=== PATIENT | female | born 1940 | race Caucasian/White ===

== ENCOUNTER → 2018-05-17 11:55 | Outpatient (CLI) | payer MEDICARE, SELFPAY ==
--- NOTE | 2018-05-17 12:02 | RAD_ITS ---
STUDY: X-RAY - RIGHT KNEE REASON FOR EXAM: Pain, arthritis. TECHNIQUE: 4 view(s) of the knee. COMPARISON: None. FINDINGS: Normal visualized distal femur. Normal visualized proximal tibia and fibula. Normal proximal tibiofibular articulation. There are small marginal osteophytes without joint space narrowing of the medial femorotibial compartment. There are marginal osteophytes and joint space narrowing of the lateral femorotibial compartment. There are marginal osteophytes and joint space narrowing of the patellofemoral articulation. There are small patellar enthesophytes. RAD/Knee 4 or More Views IMPRESSION: Arthrosis of the lateral femorotibial and patellofemoral compartments. Electronically Signed: Vladimir Guerin MD at 12:47 EDT Tel , Service support ,
[2018-05-17 14:16] LABS: Absolute Lymphocyte Count 1.23 X10^3/ul (0.83-4.51); Absolute Neutrophil Count 5.1 X10^3/uL (2.0-7.7); Basophil# 0.02 X10^3/uL; Basophil% 0.3 % (0-1); Eosinophil# 0.07 X10^3/uL; Hematocrit 40.8 % (37-47); Hemoglobin 13.3 g/dl (12.0-15.0); Lymphocyte # 1.23 X10^3/ul (4.0); Lymphocyte % 18.3 % (19-41); Mean Corp Hgb Conc 32.6 g/gl (32-36); Mean Corpuscular Hgb 29.4 pg (27.0-32.0); Mean Corpuscular Volume 90.3 fL (81-99); Mean Platelet Vol. 10.7 fl (6.2-12.0); Monocyte% 4.5 % (0-10); Neutrophil # 5.08 X10^3/uL (2.7-7.7); Neutrophil % 75.8 % (47-70); Platelet Count 271 K/mm3 (150-450); RBC Distribution Width CV 13.1 % (11.6-14.6); RBC Distribution Width SD 42.5 fl (35.1-43.9); Red Blood Count 4.52 M/mm3 (4.2-5.4); White Blood Count 6.7 K/mm3 (4.4-11.0)
[2018-05-17 14:18] LABS: AST(SGOT) 14 U/L (15-37); Alanine Aminotransfer ALT/SGPT 22 U/L (13-56); Albumin, Serum 3.8 g/dL (3.2-5.0); Alkaline Phosphatase 73 U/L (45-117); Anion Gap 7 (5-15); BUN 12 mg/dL (7-18); BUN/Creat Ratio 19.4 RATIO (10-20); Chloride 106 mmol/L (98-107); Creatinine, Serum 0.62 mg/dL (0.55-1.02); EST Glomerular Filtration Rate 100 mL/min (>60); Est Glom Filt Rate - Afr Amer 121 mL/min (>60); Glucose 96 mg/dL (74-106); Potassium 4.3 mmol/L (3.5-5.1); Protein, Total 7.8 g/dL (6.4-8.2); Sodium Level 142 mmol/L (136-145)
[2018-05-17 14:19] LABS: POSITIVE COUNT NO; POSITIVE DIFFERENTIAL NO; POSITIVE MORPHOLOGY NO
[2018-05-22 15:21] LABS: CCP IgG Antibodies 8 units (0-19); HEPATITIS B SURFACE AG Negative (Negative); HLA B27 Negative (.); Hep B Surface Antibodies Non Reactive (.); Hep C Antibodies 0.1 s/co ratio (0.0-0.9)
== END ==
PROVIDERS: Family Provider Family Medicine; PCP Family Medicine; Visit Provider Internal Medicine Rheumatology
DX: M06.4 Inflammatory polyarthropathy (principal); M17.0 Bilateral primary osteoarthritis of knee; M21.40 Flat foot [pes planus] (acquired), unspecified foot; K21.9 Gastro-esophageal reflux disease without esophagitis
CPT/HCPCS: 36415; 73564; 80053; 81374; 85025; 86200; 86431; 86706; 86803; 87340

== ENCOUNTER 2018-11-13 09:01 | Day surgery (SDC) | payer MEDICARE, SELFPAY ==
[2018-11-13 09:17] VITALS: BP 138/71; PULSE 63; RESP 16; TEMP 37; O2SAT 97; BMI 28.0
--- NOTE | 2018-11-13 10:30 | RAD_ITS ---
STUDY: X-RAY - LUMBAR SPINE REASON FOR EXAM: Female, 78 years old. Block lumbar facet L3 S1 TECHNIQUE: 4 view(s) of the lumbar spine were obtained. COMPARISON: None FINDINGS: 4 images were submitted, as radiology support for c-arm imaging in the operating room. This is not a diagnostic examination. Images for documentation purposes only. Fluoroscopy time if reported: RAD/L/S Spine Min 4 Views IMPRESSION: Intraoperative fluoroscopic image guidance. Electronically Signed: Anitha Garcia MD at 4:19 EST , Service support ,
[2018-11-13] MEDS: MethylPREDNISolone Acetate 80 MG/ML Vial (10:50)
[2018-11-13] MEDS: Bupivacaine 0.25% 30 ML Vial (10:50)
[2018-11-13 11:07] VITALS: BP 141/66; PULSE 65; RESP 16; TEMP 36.9; O2SAT 98
--- NOTE | 2018-11-13 11:45 | OP.PCM_ITS ---
Problem List (1) Spondylosis of lumbosacral region without myelopathy or radiculopathy Status: Chronic (2) Degeneration of intervertebral disc of lumbosacral region Status: Chronic Report of Operation Date of Procedure: 11/13/18 Pre-Operative Diagnosis: Lumbosacral spondylosis, lumbosacral degenerative disc disease, lumbar facet arthropathy Post-Operative Diagnosis: Lumbosacral spondylosis, lumbosacral degenerative disc disease, lumbar facet arthropathy Surgery/Procedure Performed:: Left-sided lumbar facet steroid injection L3, L4, L5, S1 Description of Surgical Findings:: PROCEDURE: Left-sided lumbar facet steroid injection L3, L4, L5, S1 PREOPERATIVE DIAGNOSIS: Lumbosacral spondylosis, lumbosacral degenerative disc disease, and lumbar facet arthropathy POSTOPERATIVE DIAGNOSIS: Lumbar sacral spondylosis, lumbosacral degenerative disc disease, and lumbar facet arthropathy ANESTHESIA: Local COMPLICATIONS: None BLOOD LOSS: Minimal PROCEDURE IN DETAIL: History and physical today was reviewed. Risks and benefits of the procedure were explained. The patient understood, agreed to our procedure, and informed consent was obtained. IV inserted per routine protocol. The patient was taken to the operating room, placed in a prone position with a pillow positioned underneath the abdomen. The left side of the lower back was prepped and draped in a sterile fashion using iodine x3. Under fluoroscopy guidance, on AP view, L3 through S1 vertebral bodies were visualized. Skin and subcutaneous tissues were anesthetized with approximately 5 mL of 1% lidocaine using a 25-gauge regular needle. Under direct visualization with fluoroscopy at approximately 25-degree angle, starting on the left L3, ending on the left S1, passing through the L4-L5 using a 22-gauge 3 1/2-inch spinal needle, the needle was advanced via the skin. The tip of the needle was maneuvered and directed towards the superior and medial gutter of the transverse process at the vicinity of the medial branch. Once the tip of the needle was in contact with the bone, the needle pulled approximately 2 mm off the bone. After negative aspiration of blood with CSF and confirmation of AP as well as oblique view, a total of 8 mL of preservative-free 0.25% Marcaine with 80 mg of Depo- Medrol was injection in divided doses between those 4 levels. The needles were then removed intact. The patient experienced no signs or symptoms intrathecal, intravascular injection. The patient experienced no paraesthesia. The procedure was completed without any apparent difficult, any complication. The patient appeared to tolerate well. ASSESSMENT AND PLAN: This is a 78-year-old female with lumbosacral spondylosis, lumbosacral degenerative disc disease, and lumbar facet arthropathy, status post left-sided lumbar facet steroid injection L3 through S1. The patient will continue her current medications. The patient will follow in approximately 2 weeks for reevaluation.
== END 2018-11-13 11:11 | disposition home or self-care (01) ==
LOC: SDC 09:02 → AC 09:05
PROVIDERS: Family Provider Family Medicine; PCP Family Medicine; Referring Provider Anesthesiology Pain Medicine; Visit Provider Anesthesiology Pain Medicine
PROC: 3E0T3BZ Introduction of Anesthetic Agent into Peripheral Nerves and Plexi, Percutaneous Approach (ICD-10-PCS; principal; 2018-11-13 10:25)
DX: M47.27 Other spondylosis with radiculopathy, lumbosacral region (principal); M51.17 Intervertebral disc disorders with radiculopathy, lumbosacral region; M48.07 Spinal stenosis, lumbosacral region; M19.90 Unspecified osteoarthritis, unspecified site; F41.9 Anxiety disorder, unspecified; K21.9 Gastro-esophageal reflux disease without esophagitis; Z79.891 Long term (current) use of opiate analgesic; Z79.899 Other long term (current) drug therapy
CPT/HCPCS: 64520; 64483; 72110

== ENCOUNTER 2019-01-08 08:35 | Day surgery (SDC) | payer MEDICARE, SELFPAY ==
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
[2019-01-08 09:10] VITALS: BP 146/75; PULSE 72; RESP 16; TEMP 36.7; O2SAT 98; BMI 27.6
--- NOTE | 2019-01-08 10:20 | RAD_ITS ---
PROCEDURE: Caudal block. DATE OF EXAMINATION: January 08, 2019. INDICATION: Female, 78 years old. Chronic low back pain. FLUOROSCOPY TIME (if supplied): (0:10) minutes/seconds. 2 cone down intraoperative views were obtained. Imaging provided for caudal block. The spinal needle is seen overlying the midportion of the sacrum. RAD/Fluor Guidance for Spine Inj IMPRESSION: Intraoperative imaging provided for caudal block. Electronically Signed: Ganesh Medina, at 9:05 EDT , Service support ,
[2019-01-08 10:25] VITALS: BP 124/68; BP 146/75; PULSE 70; RESP 16; TEMP 36.4; O2SAT 100
[2019-01-08 10:30] VITALS: BP 131/70; BP 146/75; PULSE 70; RESP 16; O2SAT 97
[2019-01-08 10:35] VITALS: BP 137/76; BP 146/75; PULSE 70; RESP 16; O2SAT 99
--- NOTE | 2019-01-08 10:38 | PCM.OPRPT ---
Problem List (1) Radiculopathy of lumbosacral region Status: Chronic (2) Spinal stenosis of lumbosacral region Status: Chronic (3) Degeneration of intervertebral disc of lumbosacral region Status: Chronic Report of Operation Date of Procedure: 01/08/19 Pre-Operative Diagnosis: Lumbosacral radiculopathy, lumbosacral degenerative disc disease, lumbosacral spinal stenosis Post-Operative Diagnosis: Lumbosacral radiculopathy, lumbosacral degenerative disc disease, lumbosacral spinal stenosis Surgery/Procedure Performed:: Diagnostic/therapeutic caudal epidural steroid injection Description of Surgical Findings:: PROCEDURE: Diagnostic/therapeutic caudal epidural steroid injection PREOPERATIVE DIAGNOSIS: Lumbosacral radiculopathy, lumbosacral degenerative disc disease, lumbosacral spinal stenosis POSTOPERATIVE DIAGNOSIS: Lumbosacral radiculopathy, lumbosacral degenerative disc disease, lumbosacral spinal stenosis ANESTHESIA: MAC COMPLICATIONS: None BLOOD LOSS: Minimal PROCEDURE IN DETAIL: History and physical today was reviewed. Risks and benefits of the procedure were explained. The patient understood, agreed to our procedure, and informed consent was obtained. IV inserted per routine protocol. The patient was taken to the operating room, placed in a prone position with a pillow positioned underneath the abdomen. The lower back area was prepped and draped in a sterile fashion using iodine x3 under fluoroscopy guidance on the lateral view the caudal space was identified the skin and subcutaneous tissue and size approximately 3 cc of 1% lidocaine using a 25-gauge regular needle under direct visualization fluoroscopy using a 22-gauge 3-1/2 inch spinal needle the needle was advanced via the skin through the sacral hiatus tip of the needle passed through the sacrococcygeal ligament advanced approximately S4 area after negative aspiration for blood or CSF a total of 3 cc of contrast were injected to confirm correct placement of the needle as well as cephalad spread the spread was followed to approximately L5 area after negative aspiration for blood or CSF and confirmation AP as well as lateral view a total of 15 cc of preservative-free 0.125% Marcaine with 80 mg of Depo-Medrol were injected easily. The needles were then removed intact. The patient experienced no signs or symptoms intrathecal, intravascular injection. The patient experienced no paraesthesia. The procedure was completed without any apparent difficult, any complication. The patient appeared to tolerate well. ASSESSMENT AND PLAN: This is a 78-year-old female with lumbosacral radiculopathy, lumbosacral degenerative disc disease, lumbosacral spinal stenosis status post diagnostic/therapeutic caudal epidural steroid injection. The patient will continue her current medications. The patient will follow in approximately 2 weeks for possible repeat of the procedure if indicated.
[2019-01-08 10:40] VITALS: BP 136/73; BP 146/75; PULSE 68; RESP 14; TEMP 36.2; O2SAT 99
[2019-01-08 10:47] VITALS: BP 146/75
== END 2019-01-08 11:03 | disposition home or self-care (01) ==
LOC: SDC 08:36 → AC 08:41
PROVIDERS: Referring Provider Anesthesiology Pain Medicine; Visit Provider Anesthesiology Pain Medicine
PROC: 3E0S3BZ Introduction of Anesthetic Agent into Epidural Space, Percutaneous Approach (ICD-10-PCS; CPT 62282; principal; 2019-01-08 09:55)
DX: M47.27 Other spondylosis with radiculopathy, lumbosacral region (principal); M51.17 Intervertebral disc disorders with radiculopathy, lumbosacral region; M48.07 Spinal stenosis, lumbosacral region; M43.16 Spondylolisthesis, lumbar region; Z79.891 Long term (current) use of opiate analgesic; M19.90 Unspecified osteoarthritis, unspecified site; K21.9 Gastro-esophageal reflux disease without esophagitis; F41.9 Anxiety disorder, unspecified; Z79.899 Other long term (current) drug therapy
CPT/HCPCS: 01992; 62323; 64520; 64483; 77003; J7120

== ENCOUNTER → 2019-01-29 | Outpatient (CLI) | payer MEDICARE, SELFPAY ==
[2019-01-08 09:10] VITALS: BMI 27.6
--- NOTE | 2019-01-29 14:45 | RAD_ITS ---
STUDY: X-RAY - RIGHT KNEE REASON FOR EXAM: Right knee pain for 6 months, no specific injury. TECHNIQUE: 5 view(s) of the knee. COMPARISON: Radiographs 05/17/2018. FINDINGS: Normal visualized distal femur. Normal visualized proximal tibia and fibula. Normal proximal tibiofibular articulation. Normal medial femorotibial compartment. There are small marginal osteophytes and moderate joint space narrowing of the lateral femorotibial compartment. There are small marginal osteophytes and [id number] joint space narrowing of the patellofemoral articulation. There is patellar enthesopathy. RAD/Knee 4 or More Views IMPRESSION: Arthrosis of the lateral femorotibial and patellofemoral compartments. Electronically Signed: Vladimir Guerin MD at 15:34 EDT Tel , Service support ,
== END | disposition home or self-care (01) ==
LOC: RAD 14:32
PROVIDERS: Referring Provider Anesthesiology Pain Medicine; Visit Provider Anesthesiology Pain Medicine
DX: M25.561 Pain in right knee (principal)
CPT/HCPCS: 73564

== ENCOUNTER 2019-02-26 09:07 | Day surgery (SDC) | payer MEDICARE, SELFPAY ==
[2019-02-26 10:08] VITALS: BP 147/67; PULSE 76; RESP 18; TEMP 37.2; O2SAT 99; BMI 27.4
--- NOTE | 2019-02-26 10:30 | RAD_ITS ---
PROCEDURE: Left L3 S1 facet joint block. DATE OF EXAMINATION: February 26, 2019. INDICATION: Female, 78 years old. Chronic low back pain. FLUOROSCOPY TIME (if supplied): (0:14) minutes/seconds. 3 cone down views were obtained. Intraoperative imaging provided for left L3 S1 facet block. RAD/L/S Spine Min 4 Views IMPRESSION: Intraoperative imaging provided for left L3 S1 facet block. Electronically Signed: Ganesh Medina, at 15:23 EDT , Service support ,
[2019-02-26] MEDS: MethylPREDNISolone Acetate 80 MG/ML Vial (10:59)
[2019-02-26] MEDS: Bupivacaine 0.25% 30 ML Vial (10:59)
[2019-02-26 11:10] VITALS: BP 134/73; BP 147/67; PULSE 73; RESP 18; TEMP 36.3; O2SAT 96
[2019-02-26 11:14] VITALS: BP 137/68; BP 147/67; PULSE 71; RESP 16; TEMP 36.3; O2SAT 95
[2019-02-26 11:28] VITALS: BP 147/67
--- NOTE | 2019-02-26 13:50 | OP.PCM_ITS ---
Problem List (1) Degeneration of intervertebral disc of lumbosacral region Status: Chronic (2) Spondylosis of lumbosacral region without myelopathy or radiculopathy Status: Chronic Report of Operation Date of Procedure: 02/26/19 Pre-Operative Diagnosis: Lumbosacral spondylosis, lumbosacral degenerative disc disease, lumbar facet arthropathy Post-Operative Diagnosis: Lumbosacral spondylosis, lumbosacral degenerative disc disease, lumbar facet arthropathy Surgery/Procedure Performed:: Left-sided lumbar facet steroid injection L3, L4, L5, S1 Description of Surgical Findings:: Left-sided lumbar facet steroid injection L3, L4, L5, S1 PREOPERATIVE DIAGNOSIS: Lumbosacral spondylosis, lumbosacral degenerative disc disease, and lumbar facet arthropathy POSTOPERATIVE DIAGNOSIS: Lumbosacral spondylosis, lumbosacral degenerative disc disease, and lumbar facet arthropathy ANESTHESIA: MAC COMPLICATIONS: None BLOOD LOSS: Minimal PROCEDURE IN DETAIL: History and physical today was reviewed. Risks and benefits of the procedure were explained. The patient understood, agreed to our procedure, and informed consent was obtained. IV inserted per routine protocol. The patient was taken to the operating room, placed in a prone position with a pillow positioned underneath the abdomen. The left side of the lower back was prepped and draped in a sterile fashion using iodine x3. Under fluoroscopy guidance, on AP view, L3 through S1 vertebral bodies were visualized. Skin and subcutaneous tissues were anesthetized with approximately 5 mL of 1% lidocaine using a 25-gauge regular needle. Under direct visualization with fluoroscopy at approximately 25-degree angle, starting on the left L3, ending on the left S1, passing through the L4-L5 using a 22-gauge 5 inch spinal needle, the needle was advanced via the skin. The tip of the needle was maneuvered and directed towards the superior and medial gutter of the transverse process at the vicinity of the medial branch. Once the tip of the needle was in contact with the bone, the needle pulled approximately 2 mm off the bone. After negative aspiration of blood with CSF and confirmation of AP as well as oblique view, a total of 8 mL of preservative-free 0.25% Marcaine with 80 mg of Depo- Medrol was injection in divided doses between those 4 levels. The needles were then removed intact. The patient experienced no signs or symptoms intrathecal, intravascular injection. The patient experienced no paraesthesia. The procedure was completed without any apparent difficult, any complication. The patient appeared to tolerate well. ASSESSMENT AND PLAN: This is a 78-year-old Female with Lumbosacral spondylosis, lumbosacral degenerative disc disease, and lumbar facet arthropathy, status post left-sided lumbar facet steroid injection L3 through S1. The patient will continue her current medications. The patient will follow in approximately 2 weeks for reevaluation.
== END 2019-02-26 11:34 | disposition home or self-care (01) ==
LOC: SDC 09:11 → AC 09:46
PROVIDERS: Referring Provider Anesthesiology Pain Medicine; Visit Provider Anesthesiology Pain Medicine
PROC: 3E0T3BZ Introduction of Anesthetic Agent into Peripheral Nerves and Plexi, Percutaneous Approach (ICD-10-PCS; CPT 64493; principal; 2019-02-26 10:25)
DX: M51.17 Intervertebral disc disorders with radiculopathy, lumbosacral region (principal); M48.07 Spinal stenosis, lumbosacral region; M47.27 Other spondylosis with radiculopathy, lumbosacral region; M43.16 Spondylolisthesis, lumbar region; M17.11 Unilateral primary osteoarthritis, right knee; K21.9 Gastro-esophageal reflux disease without esophagitis; Z79.891 Long term (current) use of opiate analgesic
CPT/HCPCS: 64493; 64494; 64495; 64483; 72110; J7120

== ENCOUNTER 2019-03-26 09:10 | Day surgery (SDC) | payer MEDICARE, SELFPAY ==
[2019-03-26] VITALS (8 sets, daily range): BP systolic 131–165; BP diastolic 66–73; PULSE 62–70; RESP 16; TEMP 36.2–37.1; O2SAT 96–99; BMI 28.1
--- NOTE | 2019-03-26 10:30 | RAD_ITS ---
PROCEDURE: Left L4 S1 transforaminal block. DATE OF EXAMINATION: March 26, 2019. INDICATION: Female, 78 years old. Chronic low back pain. FLUOROSCOPY TIME (if supplied): (0:22) minutes/seconds. 2 intraoperative images were obtained. RAD/Lumbar Spine 2 or 3 Views IMPRESSION: Intraoperative imaging provided for left L4 S1 transforaminal block. Electronically Signed: Ganesh Medina, at 13:18 EDT , Service support ,
[2019-03-26] MEDS: Bupivacaine 0.25% 30 ML Vial (10:31)
[2019-03-26] MEDS: MethylPREDNISolone Acetate 80 MG/ML Vial (10:31)
--- NOTE | 2019-03-26 12:24 | PCM.OPRPT ---
Problem List (1) Degeneration of intervertebral disc of lumbosacral region Status: Chronic (2) Radiculopathy of lumbosacral region Status: Chronic (3) Spinal stenosis of lumbosacral region Status: Chronic Report of Operation Date of Procedure: 03/26/19 Pre-Operative Diagnosis: Lumbosacral radiculopathy, lumbosacral degenerative disc disease, lumbosacral spinal stenosis Post-Operative Diagnosis: Lumbosacral radiculopathy, lumbosacral degenerative disc disease, lumbosacral spinal stenosis Surgery/Procedure Performed:: Left-sided lumbar transforaminal epidural steroid injection L4-5, L5-S1 Description of Surgical Findings:: PROCEDURE: Left-sided lumbar transforaminal epidural steroid injection L4-5, L5-S1 PREOPERATIVE DIAGNOSIS: Lumbosacral radiculopathy, lumbosacral degenerative disc disease, lumbosacral spinal stenosis POSTOPERATIVE DIAGNOSIS: Lumbosacral radiculopathy, lumbosacral degenerative disc disease, lumbosacral spinal stenosis ANESTHESIA: MAC COMPLICATIONS: None BLOOD LOSS: Minimal PROCEDURE IN DETAIL: History and physical today was reviewed. Risks and benefits of the procedure were explained. The patient understood, agreed to our procedure, and informed consent was obtained. IV inserted per routine protocol. The patient was taken to the operating room, placed in a prone position with a pillow positioned underneath the abdomen. The left side of the lower back was prepped and draped in a sterile fashion using iodine x3 under fluoroscopy guidance oblique view the L4 through S1 vertebral bodies were visualized the skin and subcutaneous tissue and size approximately 5 cc of 1% lidocaine using a 25-gauge regular needle under direct visualization fluoroscopy at approximately 35 degrees angle starting on the left L4 ending on the left L5 using a 22-gauge 5 inch spinal needle the needle was advanced via the skin the tip of the needle was maneuvered and directed towards the inferior and medial gutter of the transverse process at the superiormost aspect of the neuroforamen once the tip of the needle was at the vicinity of the foramen after negative aspiration for blood or CSF a total of 3 cc of contrast were injected in divided doses between both levels to confirm correct placement of the needle as well as medial spread the confirmation was obtained on AP as well as lateral view after repeated negative aspiration and confirmation a total of 6 cc of preservative-free 0.25% Marcaine with 80 mg of Depo-Medrol were injected in divided doses between both levels, the needles were then removed intact. The patient experienced no signs or symptoms intrathecal, intravascular injection. The patient experienced no paraesthesia. The procedure was completed without any apparent difficult, any complication. The patient appeared to tolerate well. ASSESSMENT AND PLAN: This is a 78-year-old female with lumbosacral radiculopathy, lumbosacral degenerative disc disease, lumbosacral spinal stenosis status post left-sided lumbar transforaminal epidural steroid injection L4-5, L5-S1. The patient will continue her current medications. The patient will follow in approximately 2 weeks for reevaluation.
== END 2019-03-26 11:33 | disposition home or self-care (01) ==
LOC: SDC 09:11 → AC 09:28
PROVIDERS: Referring Provider Anesthesiology Pain Medicine; Visit Provider Anesthesiology Pain Medicine
PROC: 3E0S3BZ Introduction of Anesthetic Agent into Epidural Space, Percutaneous Approach (ICD-10-PCS; CPT 64484; principal; 2019-03-26 10:25)
DX: M48.07 Spinal stenosis, lumbosacral region (principal); M51.17 Intervertebral disc disorders with radiculopathy, lumbosacral region; M47.27 Other spondylosis with radiculopathy, lumbosacral region; M43.17 Spondylolisthesis, lumbosacral region; M17.11 Unilateral primary osteoarthritis, right knee; K21.9 Gastro-esophageal reflux disease without esophagitis; F41.9 Anxiety disorder, unspecified; Z79.891 Long term (current) use of opiate analgesic; Z79.899 Other long term (current) drug therapy
CPT/HCPCS: 64484; 64483; 72100; J7120

== ENCOUNTER → 2019-04-04 | Outpatient (CLI) | payer MEDICARE, SELFPAY ==
[2019-03-26 10:09] VITALS: BMI 28.1
--- NOTE | 2019-04-04 09:58 | RAD_ITS ---
STUDY: X-RAY - PELVIS AND LEFT HIP REASON FOR EXAM: Female, 78 years old. TECHNIQUE: views of the pelvis and hip. COMPARISON: None. FINDINGS: There is degenerative disc disease and osteophytes at the level of L4-5 on the left. Both iliac bones and sacroiliac joints are unremarkable. Both hip joints particularly the left is intact. There is some sclerosis involving the right aspect of the symphysis pubis. There are multiple calcified fibroids which is slightly to the right of the midline. RAD/HIP, UNI W/ Pelvis 2-3 Views IMPRESSION: Normal x-ray examination of the pelvis and hip. Electronically Signed: Rober Felix, at 12:23 EDT Tel , Service support ,
== END | disposition home or self-care (01) ==
LOC: MTRAD 09:57
PROVIDERS: Referring Provider Nurse Practitioner Family; Visit Provider Nurse Practitioner Family
DX: M25.552 Pain in left hip (principal)
CPT/HCPCS: 73502

== ENCOUNTER 2019-07-18 14:00 | Outpatient (RCR) | payer MEDICARE, SELFPAY ==
[2019-03-26 10:09] VITALS: BMI 28.1
== END 2019-07-18 19:00 | disposition home or self-care (01) ==
LOC: PT 14:00
DX: M43.16 Spondylolisthesis, lumbar region (principal); M54.5 Low back pain
CPT/HCPCS: 97035; 97110; 97161

== ENCOUNTER → 2019-10-18 14:43 | Outpatient (CLI) | payer MEDICARE, SELFPAY ==
[2019-03-26 10:09] VITALS: BMI 28.1
--- NOTE | 2019-10-18 14:48 | CT_ITS ---
HISTORY: Fracture. Fall. Technique: Contiguous helical images were obtained through the left wrist. Findings: A comminuted distal radius fracture is present. The fracture extends to the articular surface and into the radial styloid. Bony alignment is normal. No additional fractures are perceived. CT/Extremity Upper without Contra IMPRESSION: Comminuted impacted distal radius fracture that extends to the radial styloid. There is a minimally depressed fracture fragment of the distal radius. Individualized dose optimization techniques were used for this CT. at 2245 Reported and signed by: Willy Arias MD Electronically Signed: Willy Arias MD at 22:44 EST Tel , Service support ,
== END ==
PROVIDERS: Family Provider Family Medicine; PCP Family Medicine; Referring Provider Specialist; Visit Provider Specialist
DX: S52.552A Other extraarticular fracture of lower end of left radius, initial encounter for closed fracture (principal)
CPT/HCPCS: 73200

== ENCOUNTER → 2020-06-03 10:52 | Outpatient (CLI) | payer MEDICARE, SELFPAY ==
[2019-03-26 10:09] VITALS: BMI 28.1
--- NOTE | 2020-06-03 11:05 | MRI_ITS ---
STUDY: MRI LUMBAR SPINE WITHOUT CONTRAST REASON FOR EXAM: Female, 80 years old. spondylolisthesis, DDD, LBP, left leg numbness TECHNIQUE: Standardized fat and water weighted pulse sequences were obtained in the sagittal and axial planes. COMPARISON: X-ray 11/13/2018 FINDINGS: T12-L1: Normal endplates. Normal disc height, hydration and morphology. Normal bilateral facet joints. Normal central canal and bilateral lateral recesses. Normal bilateral intervertebral neural foramina. Normal lumbar lordosis. Mild levoscoliosis centered at L1/L2. Normal conus medullaris that terminates at the L1/L2. L1-2: Mild bilobed disc protrusion produces mild spinal stenosis and mild bilateral neural foraminal stenosis. L2-3: Mild bilobed disc protrusion produces mild spinal stenosis and the, mild left neural foraminal stenosis, and moderate right neural foraminal stenosis. L3-4: Mild bilateral facet hypertrophy and ligament flavum hypertrophy. Mild broad disc protrusion produces mild spinal stenosis, mild left neural foraminal stenosis, and moderate right neural foraminal stenosis with abutment of the right L3 nerve root laterally. L4-5: Moderate left facet hypertrophy and mild right facet hypertrophy with moderate ligament flavum hypertrophy. Moderate broad disc protrusion produces moderate spinal stenosis, mild right neural foraminal stenosis, and severe left neural foraminal stenosis with effacement of the left L4 nerve root laterally. L5-S1: Mild broad disc protrusion produces mild spinal stenosis and mild bilateral neural foraminal stenosis. Normal visualized sacral ala. Normal visualized paraspinous soft tissue structures. MRI/Spine Lumbar (Routine) IMPRESSION: Mild levoscoliosis and degenerative disc disease as described above. Electronically Signed: Vishnu Dawkins MD at 14:03 EDT Tel , Service support ,
== END ==
PROVIDERS: PCP Family Medicine
DX: M43.16 Spondylolisthesis, lumbar region (principal); M51.36 Other intervertebral disc degeneration, lumbar region
CPT/HCPCS: 72148

== ENCOUNTER → 2021-05-13 14:43 | Outpatient (CLI) | payer MEDICARE, SELFPAY ==
[2019-03-26 10:09] VITALS: BMI 28.1
--- NOTE | 2021-05-13 14:45 | BI_ITS ---
MAMMOGRAPHY - BILATERAL SCREENING REASON FOR EXAM: Female, 81 years old. Routine annual screening examination. PERTINENT HISTORY: Breast implants years ago which were eventually removed. Patient now notes masslike lesion in the right breast TECHNIQUE: Digital bilateral breast lester (3D mammographic acquisition) in the CC and MLO projections. 2-D mediolateral oblique (MLO) and craniocaudad (CC) views of both breasts were obtained. CAD: Full Field Digital Mammography with Computer Added Detection was performed. COMPARISON: 04/20/2013 FINDINGS: Breast Composition: Dense There are some dystrophic calcifications noted in the mid right breast which were previously identified and are probably due to prior surgery. Directly adjacent and just medial to this is a new masslike lesion which previously was not seen. This mass lesion is spiculated on both the craniocaudal and MLO breast thoracentesis images, and the mass measures about 2 x 2 cm in size. A targeted right breast ultrasound will be performed for further evaluation. The left breast is normal. No other significant abnormalities are identified. BI/SCRN MAMM (CAD)W/LESTER BILAT IMPRESSION: A 2 x 2 cm spiculated mass lesion is noted in the right breast 12 o''clock position and this is highly suspicious for breast cancer and a breast ultrasound will be performed for additional evaluation ASSESSMENT CATEGORY: BIRADS Category 4C: High suspicion for malignancy. A letter regarding these results will be sent to the patient by the facility within 30 days. A breast ultrasound will be performed for further evaluation. Approximately 10% of breast cancers are not detected by mammography. A normal mammogram should not delay biopsy of a clinically suspicious abnormality. [id number] Electronically Signed: Lavon Buitrago DO at 9:59 EDT Tel , Service support ,
--- NOTE | 2021-05-13 15:24 | US_ITS ---
STUDY: ULTRASOUND BREAST - RIGHT REASON FOR EXAM: Female, 81 years old. TECHNIQUE: Axial and longitudinal images of the RIGHT breast were performed with a high resolution ultrasound transducer. # OF IMAGES: 25 COMPARISON: Mammogram obtained on 05/13/2021 FINDINGS: RIGHT Breast: There is a mass lesion at the 12 o''clock position 3 cm from the nipple. This mass lesion is solid and irregular and measures 3 cm in maximal dimension by about 1.5 cm in maximal AP dimension. This corresponds to the mass lesion noted on the recent mammogram obtained on 05/13/2021 and is highly suspicious for breast cancer. An ultrasound directed right breast biopsy is recommended for further evaluation. US/Breast Limited Unilateral IMPRESSION: A 3 x 1.5 cm mass lesion is seen in the right breast at the 12 o''clock position which is highly suspicious for carcinoma an ultrasound directed biopsy is recommended for further evaluation. ASSESSMENT CATEGORY: BIRADS Category 4C: High suspicion for malignancy. A letter regarding these results will be sent to the patient by the facility within 30 days. Electronically Signed: Lavon Buitrago DO at 9:52 EDT Tel , Service support ,
== END ==
PROVIDERS: PCP Family Medicine; Referring Provider Family Medicine; Visit Provider Family Medicine
DX: Z12.31 Encounter for screening mammogram for malignant neoplasm of breast (principal); R92.8 Other abnormal and inconclusive findings on diagnostic imaging of breast
CPT/HCPCS: 76642; 77063; 77067

== ENCOUNTER → 2023-02-08 | Outpatient (CLI) | payer MEDICARE, SELFPAY | END | disposition home or self-care (01) | LOC: LABSPEC 15:29 | PROVIDERS: PCP Family Medicine; Visit Provider Student in an Organized Health Care Education/Training Program | DX: N39.0 Urinary tract infection, site not specified (principal) | CPT/HCPCS: 87086; 87088 ==